=== PATIENT | female | born 1985 | race Caucasian/White ===

== ENCOUNTER → 2016-11-19 | Outpatient (CLI) | payer BC, OTHER | END | disposition home or self-care (01) | LOC: LABWHC1 11:51 | PROVIDERS: ATTEND Obstetrics & Gynecology | DX: Z34.91 Encounter for supervision of normal pregnancy, unspecified, first trimester (principal); Z3A.00 Weeks of gestation of pregnancy not specified | CPT/HCPCS: 36415; 84702 ==

== ENCOUNTER → 2016-11-21 | Outpatient (CLI) | payer BC, OTHER | END | disposition home or self-care (01) | LOC: LABWHC1 10:35 | PROVIDERS: ATTEND Obstetrics & Gynecology | DX: Z34.81 Encounter for supervision of other normal pregnancy, first trimester (principal); Z3A.00 Weeks of gestation of pregnancy not specified | CPT/HCPCS: 36415; 84702 ==

== ENCOUNTER → 2016-12-01 | Outpatient (CLI) | payer BC, OTHER | END | disposition home or self-care (01) | LOC: LABWHC1 11:50 | PROVIDERS: ATTEND Obstetrics & Gynecology | DX: O03.9 Complete or unspecified spontaneous abortion without complication (principal) | CPT/HCPCS: 36415; 84702 ==

== ENCOUNTER → 2016-12-12 | Outpatient (CLI) | payer BC, OTHER | END | disposition home or self-care (01) | LOC: LABWHC1 11:44 | PROVIDERS: ATTEND Obstetrics & Gynecology | DX: O03.9 Complete or unspecified spontaneous abortion without complication (principal); Z3A.00 Weeks of gestation of pregnancy not specified | CPT/HCPCS: 36415; 84702 ==

== ENCOUNTER → 2016-12-20 | Outpatient (CLI) | payer BC, OTHER | END | disposition home or self-care (01) | LOC: LABWHC1 09:06 | PROVIDERS: ATTEND Obstetrics & Gynecology | DX: O03.9 Complete or unspecified spontaneous abortion without complication (principal); Z3A.00 Weeks of gestation of pregnancy not specified | CPT/HCPCS: 36415; 84702 ==

== ENCOUNTER 2017-01-06 03:01 | Emergency (ER) | payer BC, OTHER ==
[2017-01-06] MEDS ORDERED: BUPIVACAINE (PF) 0.5% 30 ML VIAL SQ STA (03:12)
[2017-01-06] MEDS ORDERED: PENICILLIN VK 500MG STARTER 4 TAB BTL PO STA (03:15)
[2017-01-06] MEDS ORDERED: ACET/COD 300 MG/30 MG STARTER PACK 6 TAB BTL PO STA (03:15)
--- NOTE | 2017-01-06 03:16 | ED ---
ENT HPI - General Chief complaint: Dental/Oral Stated complaint: Dental Pain Time Seen by Provider: 01/06/17 03:07 Source: patient, RN notes reviewed Mode of arrival: ambulatory Limitations: no limitations - History of Present Illness Initial comments: Patient is a 31-year-old female with chief complaint of left sided lower dental pain for approximately 4 days. Patient reports that she started noticed some increased pain on Thursday. She states that she's been doing mouthwash and pressure around her teeth as he is supposed to. She states that she thinks that her tooth #17 is coming through. She states that she's been using Orajel and Motrin and Tylenol for the pain however it is not helped. She reports that she does have a dental appointment [facility] She states that she's never had problems with this tooth before. Previous dental visits were all done at the dental clinic. Patient denies any fever or chills or swelling over the mouth. She reports that the pain occasionally will radiate towards her ear. - Related Data Previous Rx's Medication Instructions Recorded Acetaminophen-Codeine 300-30mg 1 tab PO Q4H PRN #30 tablet 01/14/16 [Tylenol #3] Cephalexin [Keflex] 500 mg PO Q6HR #28 cap 01/14/16 Acetaminophen-Codeine 300-30mg 1 tab PO Q6H PRN #15 tablet 01/06/17 [Tylenol #3] Penicillin V Potassium [Pen Vee K] 500 mg PO QID #40 tab 01/06/17 Allergies Allergy/AdvReac Type Severity Reaction Status Date / Time No Known Allergies Allergy Verified 01/06/17 03:06 Review of Systems ROS Statement: Those systems with pertinent positive or pertinent negative responses have been documented in the HPI. ROS Other: All systems not noted in ROS Statement are negative. Past Medical History Past Medical History: No Reported History History of Any Multi-Drug Resistant Organisms: None Reported Past Surgical History: Cholecystectomy Additional Past Surgical History / Comment(s): D&C Past Anesthesia/Blood Transfusion Reactions: No Reported Reaction Past Psychological History: No Psychological Hx Reported Smoking Status: Former smoker Past Alcohol Use History: None Reported Past Drug Use History: None Reported - Past Family History Brother(s) Family Medical History: No Reported History General Exam - General Exam Comments Initial Comments: is a pleasant 31-year-old female. She doesn't appear to be in any acute distress. Limitations: no limitations General appearance: alert, in no apparent distress Head exam: Present: atraumatic, normocephalic, normal inspection Eye exam: Present: normal appearance, PERRL, EOMI. Absent: scleral icterus, conjunctival injection, periorbital swelling ENT exam: Present: normal exam, normal oropharynx (Evidence of erythema over tooth #18 and protrusion of tooth #17.), mucous membranes moist, TM's normal bilaterally Neck exam: Present: normal inspection. Absent: tenderness, meningismus, lymphadenopathy Respiratory exam: Present: normal lung sounds bilaterally. Absent: respiratory distress, wheezes, rales, rhonchi, stridor Cardiovascular Exam: Present: regular rate GI/Abdominal exam: Present: soft, normal bowel sounds. Absent: distended, tenderness, guarding, rebound, rigid Extremities exam: Present: normal inspection, full ROM, normal capillary refill. Absent: tenderness, pedal edema, joint swelling, calf tenderness Back exam: Present: normal inspection Neurological exam: Present: alert, oriented X3, CN II-XII intact Psychiatric exam: Present: normal affect, normal mood Skin exam: Present: warm, dry, intact, normal color. Absent: rash Course Vital Signs 01/06/17 03:04 Temperature 97.6 F Pulse Rate 102 H Respiratory 20 Rate Blood Pressure 140/91 O2 Sat by Pulse 99 Oximetry Procedures - Nerve Block Consent Obtained: verbal consent Local Anesthetic Used: Marcaine 0.5% Amount of anesthesia used: 5 Side: left Intraoral Nerve Block: inferior alveolar Procedure Successful: Yes Complications: none Patient Tolerated Procedure: well, no complications Medical Decision Making - Medical Decision Making Patient is a pleasant 31-year-old female chief complaint of tooth #17 for pain for the past 4 days. Patient is tried multiple gtff-hoy-uethrvn remedies however her pain is continue to persist. She states that she is concerned for an abscess behind the tooth. She does have an appointment on Thursday with the dental clinic. Patient was given a inferior alveolar block and tolerated the procedure well. Patient will be discharged with prescription for penicillin and Tylenol threes. Patient understands treatment plan and will comply. Return parameters were discussed. Disposition Clinical Impression: Pain, dental Disposition: HOME SELF-CARE Condition: Good Instructions: Toothache (ED) Additional Instructions: Patient advised to complete her antibiotic prescription. Follow-up with dental clinic. Return to the emergency department if any alarming signs or symptoms occur including increased swelling or unable to open or close jaw. [facility] [id number] [place] [address] [phone] (existing clients only) For new clients: [phone] 1st consult: $50 (includes Xrays) Usually 30% less then private dentist for visits after. [employer] Have to pay $50 for Xrays anmd rest is covered. [phone] Prescriptions: Acetaminophen-Codeine 300-30mg [Tylenol #3] 1 tab PO Q6H PRN #15 tablet PRN Reason: Pain Penicillin V Potassium [Pen Vee K] 500 mg PO QID #40 tab Referrals: Nakia Trejo MD [REFERRING] - 1-2 days Time of Disposition: 03:18
[2017-01-06 03:33] VITALS: BP 124/76; PULSE 89; RESP 18; TEMP 98
== END 2017-01-06 03:33 | disposition home or self-care (01) ==
LOC: EC 03:01
DX: K08.89 Other specified disorders of teeth and supporting structures (principal); Z87.891 Personal history of nicotine dependence
CPT/HCPCS: 64400; 99282

== ENCOUNTER 2018-03-14 17:56 | Emergency (ER) | payer OTHER, BC ==
[2018-03-14 18:09] VITALS: BP 133/80; PULSE 95; RESP 18; TEMP 97.9
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
--- NOTE | 2018-03-14 19:07 | XR ---
EXAMINATION TYPE: XR elbow complete LT DATE OF EXAM: 03/14/2018 CLINICAL HISTORY: Fall with pain TECHNIQUE: Frontal, lateral and oblique images of the left elbow are obtained. COMPARISON: None FINDINGS: There is no acute fracture/dislocation evident in the left elbow. No abnormal fat pad sig ns are seen. The overlying soft tissue appears unremarkable. IMPRESSION: There is no acute fracture or dislocation in the left elbow.
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
--- NOTE | 2018-03-14 19:10 | XR ---
EXAMINATION TYPE: XR knee complete LT DATE OF EXAM: 03/14/2018 CLINICAL HISTORY: Pain TECHNIQUE: Three views of the knee are obtained. COMPARISON: None. FINDINGS: There is no acute fracture/dislocation evident in left knee. The tri-compartment joint sp aces appear within normal limits. The overlying soft tissue appears unremarkable. IMPRESSION: There is no acute fracture or dislocation in the left knee.
== END 2018-03-14 20:16 | disposition home or self-care (01) ==
LOC: EC 17:56
DX: M25.532 Pain in left wrist (principal); M25.562 Pain in left knee; M25.522 Pain in left elbow; F17.200 Nicotine dependence, unspecified, uncomplicated; V43.52XA Car driver injured in collision with other type car in traffic accident, initial encounter; Y92.410 Unspecified street and highway as the place of occurrence of the external cause
CPT/HCPCS: 99284

== ENCOUNTER 2018-06-14 12:39 | Emergency (ER) | payer BC ==
[2018-06-14] MEDS ORDERED: ACETAMINOPHEN IV (For NPO) 1,000 MG in EMPTY BAG 1 BAG IVPB STA (14:19)
[2018-06-14] MEDS ORDERED: KETOROLAC 30 MG/ML 1 ML VIAL IVP STA (14:19)
[2018-06-14] MEDS ORDERED: SODIUM CHLORIDE 0.9% 1,000 ML IV STA (14:19)
[2018-06-14 14:34] LABS: Basophils % (A) 0 %; Eosinophils # (A) 0.1 k/uL (0-0.7); Eosinophils % (A) 1 %; HCT 39.3 % (34.0-46.0); HGB 13.2 gm/dL (11.4-16.0); Lymphocytes # (A) 1.4 k/uL (1.0-4.8); Lymphocytes % (A) 18 %; MCH 29.7 pg (25.0-35.0); MCHC 33.6 g/dL (31.0-37.0); MCV 88.3 fL (80.0-100.0); Mean Platelet Volume 6.6; Monocytes # (A) 0.6 k/uL (0-1.0); Monocytes % (A) 8 %; Neutrophils # (A) 5.1 k/uL (1.3-7.7); Neutrophils % (A) 69 %; Platelet Count 256 k/uL (150-450); RBC 4.45 m/uL (3.80-5.40); RDW 12.2 % (11.5-15.5); WBC 7.4 k/uL (3.8-10.6)
[2018-06-14 14:50] LABS: Albumin 3.6 g/dL (3.5-5.0); Calcium 9.1 mg/dL (8.4-10.2); Potassium 4.1 mmol/L (3.5-5.1); Total Bilirubin 0.2 mg/dL (0.2-1.3); Total Protein 6.4 g/dL (6.3-8.2)
[2018-06-14 15:00] LABS: Appearance,Urine Cloudy (Clear); Bacteria,Urine Many /hpf; Bilirubin,Urine Negative (Negative); Blood,Urine Large (Negative); Color,Urine Yellow; Glucose,Urine (UA) Negative (Negative); Ketones,Urine Negative (Negative); Leukocyte Esterase,Urine Large (Negative); Mucus,Urine Occasional /hpf; Nitrite,Urine Positive (Negative); Protein,Urine 1+ (Negative); RBC,Urine 7 /hpf (0-5); Specific Gravity,Urine 1.024 (1.001-1.035); Squamous Epithelial Cell,Urine 3 /hpf (0-4); Urobilinogen,Urine <2.0 mg/dL (<2.0); WBC,Urine 55 /hpf (0-5)
[2018-06-14] MEDS ORDERED: cefTRIAXone 2,000 MG in SODIUM CHLORIDE 0.9% 100 ML IVPB STA (15:05)
[2018-06-14] MEDS ORDERED: cefTRIAXone IN SWFI 2,000 MG/20 ML SYRINGE IVP STA (15:06)
--- NOTE | 2018-06-14 15:19 | ED ---
General Adult HPI - General Chief complaint: Abdominal Pain Stated complaint: Fever & Hip Pain Time Seen by Provider: 06/14/18 13:54 Source: patient, RN notes reviewed, old records reviewed Mode of arrival: ambulatory Limitations: no limitations - History of Present Illness Initial comments: This is a 32-year-old female the ER for evaluation. The patient resents for evaluation of abdominal pain left-sided flank pain. No prior history of similar complaints, denies any urinary issues. Patient denies travel or sick contacts, again states maybe a fever for 2 days but did not document fever. Also told she was warm today. Again patient is complaining of left flank pain radiating to groin - Related Data Home Medications Medication Instructions Recorded Confirmed Acetaminophen Tab [Tylenol Tab] 650 mg PO Q6H PRN 06/14/18 06/14/18 Ibuprofen [Motrin Ib] 400 mg PO Q6H PRN 06/14/18 06/14/18 Previous Rx's Medication Instructions Recorded Nitrofurantoin Monohyd/M-Cryst 100 mg PO Q12HR #14 cap 06/14/18 [Macrobid] Allergies Allergy/AdvReac Type Severity Reaction Status Date / Time No Known Allergies Allergy Verified 06/14/18 14:18 Review of Systems ROS Statement: Those systems with pertinent positive or pertinent negative responses have been documented in the HPI. ROS Other: All systems not noted in ROS Statement are negative. Past Medical History Past Medical History: No Reported History History of Any Multi-Drug Resistant Organisms: None Reported Past Surgical History: Cholecystectomy Additional Past Surgical History / Comment(s): D&C Past Anesthesia/Blood Transfusion Reactions: No Reported Reaction Past Psychological History: No Psychological Hx Reported Smoking Status: Former smoker Past Alcohol Use History: None Reported Past Drug Use History: None Reported - Past Family History Brother(s) Family Medical History: No Reported History General Exam Limitations: no limitations General appearance: alert, in no apparent distress, obese Head exam: Present: atraumatic, normocephalic, normal inspection Eye exam: Present: normal appearance, PERRL, EOMI. Absent: scleral icterus, conjunctival injection, periorbital swelling ENT exam: Present: normal exam, mucous membranes moist Neck exam: Present: normal inspection. Absent: tenderness, meningismus, lymphadenopathy Respiratory exam: Present: normal lung sounds bilaterally. Absent: respiratory distress, wheezes, rales, rhonchi, stridor Cardiovascular Exam: Present: regular rate, normal rhythm, normal heart sounds. Absent: systolic murmur, diastolic murmur, rubs, gallop, clicks GI/Abdominal exam: Present: soft, normal bowel sounds. Absent: distended, tenderness, guarding, rebound, rigid Extremities exam: Present: normal inspection, full ROM, normal capillary refill. Absent: tenderness, pedal edema, joint swelling, calf tenderness Back exam: Present: normal inspection Neurological exam: Present: alert, oriented X3, CN II-XII intact Psychiatric exam: Present: normal affect, normal mood Skin exam: Present: warm, dry, intact, normal color. Absent: rash Course Vital Signs 06/14/18 06/14/18 12:54 16:00 Temperature 97.7 F 97.9 F Pulse Rate 86 78 Respiratory 18 17 Rate Blood Pressure 112/75 140/82 O2 Sat by Pulse 100 99 Oximetry - Reevaluation(s) Reevaluation #1: Patient symptoms are improved with fever control, no acute pain or distress Medical Decision Making - Medical Decision Making 32 female the ER for evaluation of left sided abdominal pain. Positive urinary tract infection. Patient be treated appropriately discharged home - Lab Data Result diagrams: 06/14/18 13:15 06/14/18 13:15 Lab Results 06/14/18 06/14/18 06/14/18 Range/Units 13:15 13:15 14:30 WBC 7.4 (3.8-10.6) k/uL RBC 4.45 (3.80-5.40) m/uL Hgb 13.2 (11.4-16.0) gm/dL Hct 39.3 (34.0-46.0) % MCV 88.3 (80.0-100.0) fL MCH 29.7 (25.0-35.0) pg MCHC 33.6 (31.0-37.0) g/dL RDW 12.2 (11.5-15.5) % Plt Count 256 (150-450) k/uL Neutrophils % 69 % Lymphocytes % 18 % Monocytes % 8 % Eosinophils % 1 % Basophils % 0 % Neutrophils # 5.1 (1.3-7.7) k/uL Lymphocytes # 1.4 (1.0-4.8) k/uL Monocytes # 0.6 (0-1.0) k/uL Eosinophils # 0.1 (0-0.7) k/uL Basophils # 0.0 (0-0.2) k/uL Sodium 142 (137-145) mmol/L Potassium 4.1 (3.5-5.1) mmol/L Chloride 105 (98-107) mmol/L Carbon Dioxide 27 (22-30) mmol/L Anion Gap 10 mmol/L BUN 20 H (7-17) mg/dL Creatinine 1.00 (0.52-1.04) mg/dL Est GFR (CKD-EPI)AfAm 86 (>60 ml/min/1.73 sqM) Est GFR (CKD-EPI)NonAf 75 (>60 ml/min/1.73 sqM) Glucose 84 (74-99) mg/dL Calcium 9.1 (8.4-10.2) mg/dL Total Bilirubin 0.2 (0.2-1.3) mg/dL AST 17 (14-36) U/L ALT 29 (9-52) U/L Alkaline Phosphatase 71 (38-126) U/L Total Protein 6.4 (6.3-8.2) g/dL Albumin 3.6 (3.5-5.0) g/dL Amylase 64 (30-110) U/L Lipase 83 (23-300) U/L Urine Color Urine Appearance (Clear) Urine pH (5.0-8.0) Ur Specific [place] (1.001-1.035) Urine Protein (Negative) Urine Glucose (UA) (Negative) Urine Ketones (Negative) Urine Blood (Negative) Urine Nitrite (Negative) Urine Bilirubin (Negative) Urine Urobilinogen (<2.0) mg/dL Ur Leukocyte Esterase (Negative) Urine RBC (0-5) /hpf Urine WBC (0-5) /hpf Urine WBC Clumps (None) /hpf Ur Squamous Epith Cells (0-4) /hpf Urine Bacteria (None) /hpf Urine Mucus (None) /hpf Urine HCG, Qual Not Detected (Not Detectd) 06/14/18 Range/Units 14:30 WBC (3.8-10.6) k/uL RBC (3.80-5.40) m/uL Hgb (11.4-16.0) gm/dL Hct (34.0-46.0) % MCV (80.0-100.0) fL MCH (25.0-35.0) pg MCHC (31.0-37.0) g/dL RDW (11.5-15.5) % Plt Count (150-450) k/uL Neutrophils % % Lymphocytes % % Monocytes % % Eosinophils % % Basophils % % Neutrophils # (1.3-7.7) k/uL Lymphocytes # (1.0-4.8) k/uL Monocytes # (0-1.0) k/uL Eosinophils # (0-0.7) k/uL Basophils # (0-0.2) k/uL Sodium (137-145) mmol/L Potassium (3.5-5.1) mmol/L Chloride (98-107) mmol/L Carbon Dioxide (22-30) mmol/L Anion Gap mmol/L BUN (7-17) mg/dL Creatinine (0.52-1.04) mg/dL Est GFR (CKD-EPI)AfAm (>60 ml/min/1.73 sqM) Est GFR (CKD-EPI)NonAf (>60 ml/min/1.73 sqM) Glucose (74-99) mg/dL Calcium (8.4-10.2) mg/dL Total Bilirubin (0.2-1.3) mg/dL AST (14-36) U/L ALT (9-52) U/L Alkaline Phosphatase (38-126) U/L Total Protein (6.3-8.2) g/dL Albumin (3.5-5.0) g/dL Amylase (30-110) U/L Lipase (23-300) U/L Urine Color Yellow Urine Appearance Cloudy H (Clear) Urine pH 6.0 (5.0-8.0) Ur Specific [place] 1.024 (1.001-1.035) Urine Protein 1+ H (Negative) Urine Glucose (UA) Negative (Negative) Urine Ketones Negative (Negative) Urine Blood Large H (Negative) Urine Nitrite Positive H (Negative) Urine Bilirubin Negative (Negative) Urine Urobilinogen <2.0 (<2.0) mg/dL Ur Leukocyte Esterase Large H (Negative) Urine RBC 7 H (0-5) /hpf Urine WBC 55 H (0-5) /hpf Urine WBC Clumps Few H (None) /hpf Ur Squamous Epith Cells 3 (0-4) /hpf Urine Bacteria Many H (None) /hpf Urine Mucus Occasional H (None) /hpf Urine HCG, Qual (Not Detectd) - Radiology Data Radiology results: report reviewed (CT abdomen pelvis is negative for acute disease), image reviewed Disposition Clinical Impression: UTI (urinary tract infection), Abdominal pain Disposition: HOME SELF-CARE Condition: Good Instructions: Urinary Tract Infection in Women (ED) Prescriptions: Nitrofurantoin Monohyd/M-Cryst [Macrobid] 100 mg PO Q12HR #14 cap Is patient prescribed a controlled substance at d/c from ED?: No Referrals: None,Stated [Primary Care Provider] - 1-2 days
--- NOTE | 2018-06-14 15:50 | CT ---
EXAMINATION TYPE: CT abdomen pelvis w con DATE OF EXAM: 06/14/2018 HISTORY: Left lower abdominal/hip pain and fever x [address] DLP: 1357mGycm Automated Exposure Control for Dose Reduction was Utilized. CONTRAST: CT scan of the abdomen and pelvis is performed with IV Contrast, patient injected with 100ml mL of Is ovue M300. COMPARISON: None. FINDINGS: LUNG BASES: No significant abnormality is appreciated. LIVER/GB: No significant abnormality is appreciated within the hepatic parenchyma. Solitary probable granuloma is seen at the subserosal surface of the right hepatic lobe on series 3 image 36. Gallbl[place] er surgically absent. PANCREAS: No significant abnormality is seen. SPLEEN: Spleen is upper limits of normal in size measuring 13.2 cm in craniocaudal dimension. ADRENALS: There is an indeterminant 2.1 cm right adrenal gland nodule that does not meet diagnostic c riteria for a benign adenoma on today's examination. This requires further assessment with three-phas e enhanced CT or MR. Left adrenal gland is somewhat bulky without discrete nodule. KIDNEYS: Kidneys enhance and excrete overall symmetrically without hydronephrosis. No significant per inephric fat stranding or focal fluid collection. BOWEL: Appendix is air-filled and within normal limits. No evidence of pericolonic fat stranding or f ocal bowel wall thickening although these findings are somewhat limited without the utilization of or al contrast. No small or large bowel dilatation. UTERUS/ADNEXA: Ovaries demonstrate bilateral cystic/follicular change. LYMPH NODES: No greater than 1cm abdominal or pelvic lymph nodes are appreciated. OSSEOUS STRUCTURES: Osseous structures appear intact. Mild bilateral femoral acetabular arthropathy i s seen. No destructive osseous lesion is noted. OTHER: No significant additional abnormality is seen. IMPRESSION: 1. No significant acute finding is seen to account for patient's clinical symptoms. Mild bilateral fe moral acetabular arthropathy is seen. No evidence of acute fracture or suspicious osseous lesion of t he left hip in the patient's area of pain. 2. Indeterminate right adrenal gland lesion for which further characterization with dynamic three-pha se enhanced CT abdomen or MR is recommended on a nonemergent basis.
[2018-06-14 16:02] VITALS: BP 140/82; PULSE 78; RESP 17; TEMP 97.9
== END 2018-06-14 16:05 | disposition home or self-care (01) ==
LOC: EC 12:39
DX: N39.0 Urinary tract infection, site not specified (principal); Z90.49 Acquired absence of other specified parts of digestive tract; Z87.891 Personal history of nicotine dependence
CPT/HCPCS: 99285; 96374; 96375 ×2; 96361; 36415; 80053; 82150; 83690; 85025; 81001; 81025; 87086; 74177; J0696; J1885; J0131; Q9967

== ENCOUNTER → 2018-08-13 | Outpatient (CLI) | payer BC | END | disposition home or self-care (01) | LOC: RADMRIMAIN 16:21 | PROVIDERS: ATTEND Family Medicine | DX: Z53.9 Procedure and treatment not carried out, unspecified reason (principal) ==

== ENCOUNTER → 2020-12-17 | Outpatient (CLI) | payer BC ==
--- NOTE | 2020-12-17 15:58 | US ---
EXAMINATION TYPE: US thyroid st tissue head/neck DATE OF EXAM: 12/17/2020 COMPARISON: NONE CLINICAL HISTORY: E04.1 THYROID NODULES. Pt states thyroid nodules seen on outside MRI GLAND SIZE: Right Lobe: 5.9 x 1.7 x 1.7 cm Overall Parenchyma: homogenous Left Lobe: 5.2 x 1.2 x 1.6 cm Overall Parenchyma: homogeneous Isthmus Thickness: 0.5 cm NODULES RIGHT: # of nodules measured on right: 2 1. 2.4 X 1.1 x 2.5 cm solid or almost completely solid, isoechoic nodule, which is wider than tall, with smooth margins, without echogenic foci. Prior size: No prior 2. 1.4 X 1.0 x 1.3 cm solid or almost completely solid, isoechoic nodule, which is wider than tall, with smooth margins, without echogenic foci. Prior size: No prior LEFT: # of nodules measured on left: 1 1. 2.9 X 1.5 x 1.8 cm solid or almost completely solid, isoechoic nodule, which is wider than tall, with smooth margins, without echogenic foci. Prior size: No prior Bilateral neck scanned, no evidence of lymphadenopathy. Bilateral nodules > 1 cm. IMPRESSION: 1. Solid thyroid nodules seen bilaterally greater than 1 cm. The need to biopsy should be made on a c linical basis. 2. Thyroidomegaly.
== END | disposition home or self-care (01) ==
LOC: RADUSWWP 09-28 16:54
PROVIDERS: ATTEND Family Medicine
DX: E04.2 Nontoxic multinodular goiter (principal)
CPT/HCPCS: 76536

== ENCOUNTER 2021-02-01 09:25 | Day surgery (SDC) | payer BC ==
[2021-02-01 10:00] VITALS: TEMP 98.7
[2021-02-01 11:30] VITALS: BP 143/86; PULSE 87; RESP 18
--- NOTE | 2021-02-01 11:39 | US ---
ULTRASOUND GUIDED FNA THYROID BIOPSY: CLINICAL HISTORY: Request for 2 right-sided thyroid and one left thyroid nodule FNA FINDINGS: The procedure was explained to the patient. The risks, complications, benefits and alternatives were discussed and any questions were answered. Informed consent was obtained. Patient was placed supin e on the ultrasound table and prepped and draped in the usual sterile fashion. Utilizing a 25 gauge needle, five passes were made into the requested 3 thyroid nodules. Patient was stable throughout the procedure. Pathology is pending. All elements of maximal barrier technique were utilized. IMPRESSION: 1. Successful ultrasound guided FNA thyroid biopsy.
== END 2021-02-01 11:20 | disposition home or self-care (01) ==
LOC: RADPROMAIN 09:25
PROVIDERS: ATTEND Surgery Plastic and Reconstructive Surgery
DX: E04.1 Nontoxic single thyroid nodule (principal)
CPT/HCPCS: 10005; 10006; 88173; 88305